=== PATIENT | female | born 1980 | race Caucasian/White ===

== ENCOUNTER 2016-08-12 20:59 | Emergency (ER) | payer OTHER | END 2016-08-12 23:40 | disposition home or self-care (01) | LOC: ER 20:59 | DX: R51 Headache (principal); M54.2 Cervicalgia; S41.112A Laceration without foreign body of left upper arm, initial encounter; V43.52XA Car driver injured in collision with other type car in traffic accident, initial encounter; Y92.410 Unspecified street and highway as the place of occurrence of the external cause; Z79.899 Other long term (current) drug therapy; Z88.5 Allergy status to narcotic agent | CPT/HCPCS: 70450; 71250; 72125; 72128; 73060; 90471; 90715; 96372; 99070; 99284; 99284-25 ==